=== PATIENT | male | born 1945 | race African-American/Black ===

== ENCOUNTER 2018-06-29 02:26 | Inpatient (IN) | payer MEDICARE ==
[~2018-06-29] VITALS: Ht 177.8 cm; Wt 62.7 kg
[2018-06-29 02:55] LABS: BASO # 0.1 x10^3/uL (0.0-0.2); BASO % 1 % (0-3); EOS # 0.2 x10^3/uL (0.0-0.7); EOS % 2 % (0-3); HEMATOCRIT 44.7 % (39.0-53.0); HEMOGLOBIN 15.5 g/dL (13.0-17.5); LYMPH % 30 % (24-48); MEAN CORPUSCULAR HEMOGLOBIN 30 pg (25-35); MEAN CORPUSCULAR HGB CONC 35 g/dL (31-37); MEAN CORPUSCULAR VOLUME 87 fL (79-100); MONO % 10 % (0-9); NEUT # 5.8 x10^3uL (1.8-7.7); NEUT % 57 % (31-73); PLATELET COUNT 333 x10^3/uL (140-400); RED BLOOD COUNT 5.13 x10^6/uL (4.30-5.70); RED CELL DISTRIBUTION WIDTH 15.3 % (11.5-14.5); WHITE BLOOD COUNT 10.1 x10^3/uL (4.0-11.0)
[2018-06-29 03:05] LABS: CALCIUM 9.8 mg/dL (8.5-10.1); CREATININE 1.6 mg/dL (0.7-1.3); GFR 51.4; POTASSIUM 3.7 mmol/L (3.5-5.1)
[2018-06-29 03:10] LABS: ALBUMIN 4.4 g/dL (3.4-5.0); TOTAL BILIRUBIN 1.2 mg/dL (0.2-1.0); TOTAL PROTEIN 8.9 g/dL (6.4-8.2)
[2018-06-29] MEDS ORDERED: FUROSEMIDE 20 MG/2 ML VIAL. IVP ONE (03:45)
[2018-06-29] MEDS ORDERED: risperiDONE 0.25 MG TABLET. PO ONE (03:45)
[2018-06-29 03:55] LABS: BILIRUBIN,URINE SMALL (NEG); CLARITY,URINE CLEAR; COLOR,URINE AMBER; NITRITE,URINE NEGATIVE (NEG); PH,URINE 5.5; PROTEIN,URINE 30 mg/dL (NEG-TRACE); UROBILINOGEN,URINE 0.2 mg/dL (0.2 mg/dL)
[2018-06-29 04:01] LABS: BARBITURATES NEG (NEG); BENZODIAZEPINES NEG (NEG); CANNABINOIDS NEG (NEG); COCAINE NEG (NEG); METHADONE NEG (NEG); OPIATES POS (NEG); PHENCYCLIDINE NEG (NEG)
[2018-06-29 04:03] LABS: AMPHETAMINE/METHAMPHETAMINE NEG (NEG)
[2018-06-29 04:12] LABS: BACTERIA,URINE 0 /HPF (0-FEW); HYALINE CASTS, URINE MODERATE /HPF; RBC,URINE OCC /HPF (0-2); SQUAMOUS EPITHELIAL CELL,UR FEW /LPF
--- NOTE | 2018-06-29 04:26 | RAD ---
INDICATION: ams COMPARISON: None. TECHNIQUE: Axial CT images obtained through the head without intravenous contrast. One or more of the following individualized dose reduction techniques were utilized for this examination: 1. Automated exposure control; 2. Adjustment of the mA and/or kV according to patient size; 3. Use of iterative reconstruction technique. FINDINGS: No intracranial hemorrhage. No midline shift. Basal cisterns patents. Ventricles and sulci are globally prominent. No acute osseous abnormality. Orbits and paranasal sinuses unremarkable. Scattered foci of low attenuation within the white matter. IMPRESSION: 1. No acute intracranial hemorrhage. 2. Scattered regions of low attenuation within the white matter. Non-specific in nature but frequently secondary to small vessel ischemic disease. If there is concern for acute etiology clinically MRI can better assess acuity. 3. Prominence of ventricles and sulci which is frequently secondary to age related volume loss. Electronically signed by: Manjit Trevizo MD (06/29/2018 4:24 AM) [facility]
--- NOTE | 2018-06-29 04:27 | PHYS DOC ---
Past Medical History Past Medical History: Hypertension Alcohol Use: None Drug Use: None Adult General Chief Complaint Chief Complaint: ALTERED MENTAL STATUS HPI HPI Patient is a 72 year old male brought in by ambulance from the [facility] with altered mental status. Apparently he was just admitted to 2 days ago for something very similar he's been kind of sleepy within normal no answering questions appropriately and cut off not really able to sit up on his own at times at [facility]. He did have a positive urine drug screen for opiates at on his recent admission on my review of the medical records. He did have a CT brain imaging that showed possible normal pressure hydrocephalus but no other acute trauma. His blood pressure was very elevated at they thought he might have a component of hypertensive encephalopathy. He was admitted and observed improved and then was discharged back to [facility]. Tonight again he was not really answering questions the right way and was kind of hard to arouse at times and was unable to sit up all the way on his own and so he called 911 again. Blood sugar was 105 in the field. Medics suspected drug use over they did not see any specific drug paraphernalia. Patient is not really answering questions fully he does answer some questions such as he knows the month was June but then when asked why he is here at the hospital he says "what do you mean" Review of Systems Review of Systems Unable due to patient cooperation Current Medications Current Medications Current Medications Medications (Trade) Dose Ordered Sig/Abiodun Start Time Stop Time Status Last Admin Dose Admin Furosemide (Lasix) 20 mg 1X ONCE 06/29/18 03:45 06/29/18 03:46 DC 06/29/18 03:45 20 MG Risperidone (RisperDAL) 0.25 mg 1X ONCE 06/29/18 03:45 06/29/18 03:46 DC Allergies Allergies Allergies Coded Allergies Type Severity Reaction Last Updated Verified No Known Drug Allergies 06/29/18 No Physical Exam Physical Exam Constitutional: Well developed, under nourished, no acute distress, non-toxic appearance. [] HENT: Normocephalic, atraumatic, bilateral external ears normal, oropharynx moist, no oral exudates, nose normal. [] Eyes: Pupils are very small., EOMI, conjunctiva normal, no discharge. [] Neck: Normal range of motion, no tenderness, supple, no stridor. [] Cardiovascular: There is a loud murmur at least 3-6 maybe about her systolic left upper sternal border JVD is noted Lungs & Thorax: Faint wheezing bilateral lung olvera Abdomen: Bowel sounds normal, soft, no tenderness, no masses, no pulsatile masses. [] Skin: Warm, dry, no erythema, no rash. [] Back: No tenderness, no CVA tenderness. [] Extremities: No tenderness, no cyanosis, no clubbing, ROM intact, no edema. [] Neurologic: Alert and oriented X 3, normal motor function, normal sensory function, no focal deficits noted. []Will be all extremities Jackson able to follow commands he does appear to selectively answer some questions rather others Psychologic: Appears intermittently paranoid but overall, and cooperative. Current Patient Data Vital Signs Vital Signs Date Time Temp Pulse Resp B/P (MAP) Pulse Ox O2 Delivery O2 Flow Rate FiO2 06/29/18 03:02 81 18 93 06/29/18 02:36 97.6 227/91 (136) Room Air 97.6 Lab Values Laboratory Tests Test 06/29/18 02:48 06/29/18 03:47 White Blood Count 10.1 x10^3/uL (4.0-11.0) Red Blood Count 5.13 x10^6/uL (4.30-5.70) Hemoglobin 15.5 g/dL (13.0-17.5) Hematocrit 44.7 % (39.0-53.0) Mean Corpuscular Volume 87 fL (79-100) Mean Corpuscular Hemoglobin 30 pg (25-35) Mean Corpuscular Hemoglobin Concent 35 g/dL (31-37) Red Cell Distribution Width 15.3 % (11.5-14.5) H Platelet Count 333 x10^3/uL (140-400) Neutrophils (%) (Auto) 57 % (31-73) Lymphocytes (%) (Auto) 30 % (24-48) Monocytes (%) (Auto) 10 % (0-9) H Eosinophils (%) (Auto) 2 % (0-3) Basophils (%) (Auto) 1 % (0-3) Neutrophils # (Auto) 5.8 x10^3uL (1.8-7.7) Lymphocytes # (Auto) 3.0 x10^3/uL (1.0-4.8) Monocytes # (Auto) 1.0 x10^3/uL (0.0-1.1) Eosinophils # (Auto) 0.2 x10^3/uL (0.0-0.7) Basophils # (Auto) 0.1 x10^3/uL (0.0-0.2) Sodium Level 142 mmol/L (136-145) Potassium Level 3.7 mmol/L (3.5-5.1) Chloride Level 105 mmol/L (98-107) Carbon Dioxide Level 27 mmol/L (21-32) Anion Gap 10 (6-14) Blood Urea Nitrogen 19 mg/dL (8-26) Creatinine 1.6 mg/dL (0.7-1.3) H Estimated GFR (Cockcroft-Gault) 51.4 BUN/Creatinine Ratio 12 (6-20) Glucose Level 164 mg/dL (70-99) H Calcium Level 9.8 mg/dL (8.5-10.1) Total Bilirubin 1.2 mg/dL (0.2-1.0) H Aspartate Amino Transferase (AST) 24 U/L (15-37) Alanine Aminotransferase (ALT) 19 U/L (16-63) Alkaline Phosphatase 164 U/L (46-116) H Troponin I Quantitative < 0.017 ng/mL (0.000-0.055) WH-Fgg-L-Type Natriuretic Peptide 1743 pg/mL (0-124) H Total Protein 8.9 g/dL (6.4-8.2) H Albumin 4.4 g/dL (3.4-5.0) Albumin/Globulin Ratio 1.0 (1.0-1.7) Ethyl Alcohol Level < 10 mg/dL (0-10) Urine Collection Type U cath Urine Color Senait Urine Clarity Clear Urine pH 5.5 Urine Specific [place] 1.025 Urine Protein 30 mg/dL (NEG-TRACE) Urine Glucose (UA) Negative mg/dL (NEG) Urine Ketones (Stick) Trace mg/dL (NEG) Urine Blood Negative (NEG) Urine Nitrite Negative (NEG) Urine Bilirubin Small (NEG) Urine Urobilinogen Dipstick 0.2 mg/dL (0.2 mg/dL) Urine Leukocyte Esterase Trace (NEG) Urine RBC Occ /HPF (0-2) Urine WBC 1-4 /HPF (0-4) Urine Squamous Epithelial Cells Few /LPF Urine Bacteria 0 /HPF (0-FEW) Urine Hyaline Casts Moderate /HPF Urine Mucus Marked /LPF Urine Opiates Screen Pos (NEG) Urine Methadone Screen Neg (NEG) Urine Barbiturates Neg (NEG) Urine Phencyclidine Screen Neg (NEG) Urine Amphetamine/Methamphetamine Neg (NEG) Urine Benzodiazepines Screen Neg (NEG) Urine Cocaine Screen Neg (NEG) Urine Cannabinoids Screen Neg (NEG) Urine Ethyl Alcohol Neg (NEG) Laboratory Tests 06/29/18 02:48 Laboratory Tests 06/29/18 02:48 EKG EKG [] Radiology/Procedures Radiology/Procedures [] Impressions: Chest x-ray my interpretation there is cardiomegaly as well as possible mild pulmonary vascular congestion. Course & Med Decision Making Course & Med Decision Making Pertinent Labs and Imaging studies reviewed. (See chart for details) []72-year-old male brought in by ambulance with altered mental status apparently has been kind of slow to answer questions and not really able to sit himself up all the way on his own at [facility]. Suspected drug use opiates screen is positive review of the [facility] records they are in the chart apparently he had been on methadone but they called over to doctors called over and realized that he actually is not at the methadone clinic anymore. This leads to a possibility of surreptitious opiate use given the pinpoint pupils on examination today as well this may be the reason for his altered mental status. However he does have some borderline hypoxia 90 and 91 on room air he has a loud murmur to me sounds concerning for possible aortic stenosis his BNP is elevated he does appear to be mildly dyspneic his blood pressure is quite elevated I think he warrants admission overnight for observation for some very gentle diuresis possible echo and also further consideration of the altered mental status. Considered hypoxic event at [facility] as a possible etiology as well given the borderline sats in the ER I suspect there may be a component of dementia given some of his behaviors in the emergency room. Well may have had illegal drug use as well. Dragon Disclaimer Dragon Disclaimer This electronic medical record was generated, in whole or in part, using a voice recognition dictation system. Departure Departure Impression: Primary Impression: Altered mental status Disposition: ADMITTED INPATIENT Admitting Physician: Xie. Durham Condition: STABLE Referrals: NO PCP (PCP) ILSA NORRIS MD Jun 29, 2018 04:27
[2018-06-29] MEDS ORDERED: NITROGLYCERIN OINT 1 GM PACKET. TP ONE (05:00)
[2018-06-29 05:08] LABS: PROTHROMBIN TIME PATIENT 13.4 SEC (11.7-14.0)
[2018-06-29] MEDS ORDERED: FLUT16SP NS (05:29)
[2018-06-29] MEDS ORDERED: PROAIR HFA8.5 GM INH (05:44)
[2018-06-29] MEDS ORDERED: ACET325T9 PO (05:44)
[2018-06-29] MEDS ORDERED: CHOL100013 PO (05:44)
[2018-06-29] MEDS ORDERED: CARV12.5 PO (05:44)
[2018-06-29] MEDS ORDERED: FOLI1TAB16 PO (05:44)
[2018-06-29] MEDS ORDERED: IBUP-1060 PO (05:44)
[2018-06-29] MEDS ORDERED: DICL100G18 TP (05:44)
[2018-06-29] MEDS ORDERED: CYAN10005 PO (05:44)
[2018-06-29] MEDS ORDERED: ASPI81TA50 PO (05:44)
[2018-06-29] MEDS ORDERED: LORA10TA68 PO (05:44)
[2018-06-29] MEDS ORDERED: MELA3TAB2 PO (05:44)
[2018-06-29 06:36] VITALS: BP 151/112
--- NOTE | 2018-06-29 06:56 | EKG ---
[facility] [address] [place] [address] Test Date: 2018-06-29 Test Time: 04:25:23 Pat Name: CHARLEEN ALMEIDA Department: Room: [facility] 1 Gender: M Account Resolution Specialist: : 1945 Requested By: ILSA NORRIS Order Number: [id number] [place] MD: Silvio Crews MD Measurements Intervals [place] Rate: 80 P: WA: QRS: 175 QRSD: 100 T: 7 QT: 390 QTc: 453 Interpretive Statements SR LIMB LEAD REVERSAL NON-SPECIFIC ST/T CHANGES LVH Electronically Signed On 06-29-2018 7:24:20 CDT by Silvio Crews MD
[2018-06-29 07:00] VITALS: BP 130/91
--- NOTE | 2018-06-29 07:45 | RAD ---
Portable chest, 06/29/2018: HISTORY: Chest pain The heart size is within normal limits for the portable technique. There is tortuosity and calcific plaquing of the thoracic aorta. Mild prominence of the pulmonary markings is probably due to scarring. No pulmonary consolidation is seen. There is no evidence of pleural fluid. A moderate amount of bowel gas is noted in the upper abdomen in a nonspecific pattern. Moderate multilevel degenerative changes are present in the spine. IMPRESSION: 1. Aortic atherosclerosis. 2. No acute cardiopulmonary abnormality is detected. Electronically signed by: Tavares Velasco MD (06/29/2018 7:42 AM) [facility]
--- NOTE | 2018-06-29 10:44 | PDOC1 ---
History and Physical Date of Admission Date of Admission DATE: 06/29/18 TIME: 10:44 Identification/Chief Complaint Chief Complaint CC 72 year old male brought in by ambulance from the [facility] with altered mental status. 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 He did have a positive urine drug screen for opiates at on recent admission He states he was confused yesterday, but now is ok, knows year, president on prompting, but mentation is slow Medics suspected drug use over they did not see any specific drug paraphernalia URINE DRUG SCREEN IS POS FOR OPIATES FROM ER Social History Smoke: Quit ALCOHOL: occassional Drugs: Other (UNKNOWN) Current Problem List Problem List Problems Medical Problems: (1) Altered mental status Status: Acute Current Medications Current Medications Current Medications Furosemide (Lasix) 20 mg 1X ONCE IVP Last administered on 06/29/18at 03:45; Start 06/29/18 at 03:45; Stop 06/29/18 at 03:46; Status DC Risperidone (RisperDAL) 0.25 mg 1X ONCE PO ; Start 06/29/18 at 03:45; Stop at 03:46; Status DC Nitroglycerin (Nitro-Bid Oint) 1 inch 1X ONCE TP Last administered on at 05:17; Start 06/29/18 at 05:00; Stop 06/29/18 at 05:01; Status DC Active Scripts Active Reported Melatonin 3 Mg Tablet 6 Mg PO HS Ibuprofen 800 Mg Tablet 800 Mg PO PRN Q8HRS PRN Folic Acid 1 Mg Tablet 1 Tab PO DAILY Voltaren (Diclofenac Sodium) 100 Gm Gel..gram. 1 Gm TP BID Vitamin B-12 (Cyanocobalamin (Vitamin B-12)) 1,000 Mcg Tablet 1 Tab PO DAILY Vitamin D (Cholecalciferol (Vitamin D3)) 1,000 Unit Capsule 1 Cap PO DAILY Aspir-Low (Aspirin) 81 Mg Tablet.dr 1 Tab PO DAILY Proair Hfa Inhaler (Albuterol Sulfate) 8.5 Gm Hfa.aer.ad 22 Puff INH PRN Q4HRS PRN Tylenol (Acetaminophen) 325 Mg Tablet 1 Tab PO PRN Q6HRS PRN Coreg (Carvedilol) 12.5 Mg Tablet 1 Tab PO BID Claritin (Loratadine) 10 Mg Tablet 1 Tab PO DAILY Fluticasone Propionate Nasal Maiden (Fluticasone Propionate) 16 Gm Maiden.susp 2 Maiden NS DAILY Allergies Allergies: Coded Allergies: No Known Drug Allergies (Unverified , 06/29/18) Physical Exam Physical Exam Eyes: Pupils are small., EOMI, conjunctiva normal, no discharge. [] Neck: Normal range of motion, no tenderness, supple, no stridor. [] Cardiovascular: There is a loud murmur at least 3-6 maybe about her systolic left upper sternal border JVD is noted Lungs & Thorax: Faint wheezing bilateral lung olvera Abdomen: Bowel sounds normal, soft, no tenderness, no masses, no pulsatile masses. [] Skin: Warm, dry, no erythema, no rash. [] Back: No tenderness, no CVA tenderness. [] Extremities: No tenderness, no cyanosis, no clubbing, ROM intact, no edema. [] Neurologic: Alert and oriented X 3, normal motor function, normal sensory function, no focal deficits noted. Psychologic: cooperative. General: No acute distress Breasts: Not examined Abdomen: Normal bowel sounds, No tenderness, No hepatosplenomegaly Rectal Exam: not examined PELVIC: Examination not indicated Extremities: No cyanosis Neuro: Cranial nerves 3-12 NL Vitals Vitals Vital Signs Date Time Temp Pulse Resp B/P (MAP) Pulse Ox O2 Delivery O2 Flow Rate FiO2 06/29/18 08:00 Room Air 06/29/18 07:00 97.8 67 20 130/91 (104) 95 97.8 Labs Labs Laboratory Tests Test 06/29/18 02:48 06/29/18 03:47 06/29/18 05:00 White Blood Count 10.1 x10^3/uL (4.0-11.0) Red Blood Count 5.13 x10^6/uL (4.30-5.70) Hemoglobin 15.5 g/dL (13.0-17.5) Hematocrit 44.7 % (39.0-53.0) Mean Corpuscular Volume 87 fL (79-100) Mean Corpuscular Hemoglobin 30 pg (25-35) Mean Corpuscular Hemoglobin Concent 35 g/dL (31-37) Red Cell Distribution Width 15.3 % (11.5-14.5) Platelet Count 333 x10^3/uL (140-400) Neutrophils (%) (Auto) 57 % (31-73) Lymphocytes (%) (Auto) 30 % (24-48) Monocytes (%) (Auto) 10 % (0-9) Eosinophils (%) (Auto) 2 % (0-3) Basophils (%) (Auto) 1 % (0-3) Neutrophils # (Auto) 5.8 x10^3uL (1.8-7.7) Lymphocytes # (Auto) 3.0 x10^3/uL (1.0-4.8) Monocytes # (Auto) 1.0 x10^3/uL (0.0-1.1) Eosinophils # (Auto) 0.2 x10^3/uL (0.0-0.7) Basophils # (Auto) 0.1 x10^3/uL (0.0-0.2) Sodium Level 142 mmol/L (136-145) Potassium Level 3.7 mmol/L (3.5-5.1) Chloride Level 105 mmol/L (98-107) Carbon Dioxide Level 27 mmol/L (21-32) Anion Gap 10 (6-14) Blood Urea Nitrogen 19 mg/dL (8-26) Creatinine 1.6 mg/dL (0.7-1.3) Estimated GFR (Cockcroft-Gault) 51.4 BUN/Creatinine Ratio 12 (6-20) Glucose Level 164 mg/dL (70-99) Calcium Level 9.8 mg/dL (8.5-10.1) Total Bilirubin 1.2 mg/dL (0.2-1.0) Aspartate Amino Transf (AST/SGOT) 24 U/L (15-37) Alanine Aminotransferase (ALT/SGPT) 19 U/L (16-63) Alkaline Phosphatase 164 U/L (46-116) Troponin I Quantitative < 0.017 ng/mL (0.000-0.055) CE-Ikb-I-Type Natriuretic Peptide 1743 pg/mL (0-124) Total Protein 8.9 g/dL (6.4-8.2) Albumin 4.4 g/dL (3.4-5.0) Albumin/Globulin Ratio 1.0 (1.0-1.7) Ethyl Alcohol Level < 10 mg/dL (0-10) Urine Collection Type U cath Urine Color Senait Urine Clarity Clear Urine pH 5.5 Urine Specific [place] 1.025 Urine Protein 30 mg/dL (NEG-TRACE) Urine Glucose (UA) Negative mg/dL (NEG) Urine Ketones (Stick) Trace mg/dL (NEG) Urine Blood Negative (NEG) Urine Nitrite Negative (NEG) Urine Bilirubin Small (NEG) Urine Urobilinogen Dipstick 0.2 mg/dL (0.2 mg/dL) Urine Leukocyte Esterase Trace (NEG) Urine RBC Occ /HPF (0-2) Urine WBC 1-4 /HPF (0-4) Urine Squamous Epithelial Cells Few /LPF Urine Bacteria 0 /HPF (0-FEW) Urine Hyaline Casts Moderate /HPF Urine Mucus Marked /LPF Urine Opiates Screen Pos (NEG) Urine Methadone Screen Neg (NEG) Urine Barbiturates Neg (NEG) Urine Phencyclidine Screen Neg (NEG) Urine Amphetamine/Methamphetamine Neg (NEG) Urine Benzodiazepines Screen Neg (NEG) Urine Cocaine Screen Neg (NEG) Urine Cannabinoids Screen Neg (NEG) Urine Ethyl Alcohol Neg (NEG) Prothrombin Time 13.4 SEC (11.7-14.0) Prothromb Time International Ratio 1.1 (0.8-1.1) Laboratory Tests Test 06/29/18 02:48 06/29/18 03:47 06/29/18 05:00 White Blood Count 10.1 x10^3/uL (4.0-11.0) Red Blood Count 5.13 x10^6/uL (4.30-5.70) Hemoglobin 15.5 g/dL (13.0-17.5) Hematocrit 44.7 % (39.0-53.0) Mean Corpuscular Volume 87 fL (79-100) Mean Corpuscular Hemoglobin 30 pg (25-35) Mean Corpuscular Hemoglobin Concent 35 g/dL (31-37) Red Cell Distribution Width 15.3 % (11.5-14.5) Platelet Count 333 x10^3/uL (140-400) Neutrophils (%) (Auto) 57 % (31-73) Lymphocytes (%) (Auto) 30 % (24-48) Monocytes (%) (Auto) 10 % (0-9) Eosinophils (%) (Auto) 2 % (0-3) Basophils (%) (Auto) 1 % (0-3) Neutrophils # (Auto) 5.8 x10^3uL (1.8-7.7) Lymphocytes # (Auto) 3.0 x10^3/uL (1.0-4.8) Monocytes # (Auto) 1.0 x10^3/uL (0.0-1.1) Eosinophils # (Auto) 0.2 x10^3/uL (0.0-0.7) Basophils # (Auto) 0.1 x10^3/uL (0.0-0.2) Sodium Level 142 mmol/L (136-145) Potassium Level 3.7 mmol/L (3.5-5.1) Chloride Level 105 mmol/L (98-107) Carbon Dioxide Level 27 mmol/L (21-32) Anion Gap 10 (6-14) Blood Urea Nitrogen 19 mg/dL (8-26) Creatinine 1.6 mg/dL (0.7-1.3) Estimated GFR (Cockcroft-Gault) 51.4 BUN/Creatinine Ratio 12 (6-20) Glucose Level 164 mg/dL (70-99) Calcium Level 9.8 mg/dL (8.5-10.1) Total Bilirubin 1.2 mg/dL (0.2-1.0) Aspartate Amino Transf (AST/SGOT) 24 U/L (15-37) Alanine Aminotransferase (ALT/SGPT) 19 U/L (16-63) Alkaline Phosphatase 164 U/L (46-116) Troponin I Quantitative < 0.017 ng/mL (0.000-0.055) YP-Via-Y-Type Natriuretic Peptide 1743 pg/mL (0-124) Total Protein 8.9 g/dL (6.4-8.2) Albumin 4.4 g/dL (3.4-5.0) Albumin/Globulin Ratio 1.0 (1.0-1.7) Ethyl Alcohol Level < 10 mg/dL (0-10) Urine Collection Type U cath Urine Color Senait Urine Clarity Clear Urine pH 5.5 Urine Specific [place] 1.025 Urine Protein 30 mg/dL (NEG-TRACE) Urine Glucose (UA) Negative mg/dL (NEG) Urine Ketones (Stick) Trace mg/dL (NEG) Urine Blood Negative (NEG) Urine Nitrite Negative (NEG) Urine Bilirubin Small (NEG) Urine Urobilinogen Dipstick 0.2 mg/dL (0.2 mg/dL) Urine Leukocyte Esterase Trace (NEG) Urine RBC Occ /HPF (0-2) Urine WBC 1-4 /HPF (0-4) Urine Squamous Epithelial Cells Few /LPF Urine Bacteria 0 /HPF (0-FEW) Urine Hyaline Casts Moderate /HPF Urine Mucus Marked /LPF Urine Opiates Screen Pos (NEG) Urine Methadone Screen Neg (NEG) Urine Barbiturates Neg (NEG) Urine Phencyclidine Screen Neg (NEG) Urine Amphetamine/Methamphetamine Neg (NEG) Urine Benzodiazepines Screen Neg (NEG) Urine Cocaine Screen Neg (NEG) Urine Cannabinoids Screen Neg (NEG) Urine Ethyl Alcohol Neg (NEG) Prothrombin Time 13.4 SEC (11.7-14.0) Prothromb Time International Ratio 1.1 (0.8-1.1) Images Images INDICATION: ams COMPARISON: None. TECHNIQUE: Axial CT images obtained through the head without intravenous contrast. One or more of the following individualized dose reduction techniques were utilized for this examination: 1. Automated exposure control; 2. Adjustment of the mA and/or kV according to patient size; 3. Use of iterative reconstruction technique. FINDINGS: No intracranial hemorrhage. No midline shift. Basal cisterns patents. Ventricles and sulci are globally prominent. No acute osseous abnormality. Orbits and paranasal sinuses unremarkable. Scattered foci of low attenuation within the white matter. IMPRESSION: 1. No acute intracranial hemorrhage. 2. Scattered regions of low attenuation within the white matter. Non-specific in nature but frequently secondary to small vessel ischemic disease. If there is concern for acute etiology clinically MRI can better assess acuity. 3. Prominence of ventricles and sulci which is frequently secondary to age related volume loss. Electronically signed by: Manjit Trevizo MD (06/29/2018 4:24 AM) [facility] VTE Prophylaxis Ordered VTE Prophylaxis Devices: Yes VTE Pharmacological Prophylaxi: Yes Assessment/Plan Assessment/Plan Impression: Altered mental status HX NARCOTIC ABUSE IN Past, apparently was followed in methadone vclinic at [facility] suspect aortic stenosis low attenuation within the white matter., frequently secondary to small vessel ischemic disease mild-mod dementia PLAN IV FLUID SUPPORT TELE NEUROCHECKS echo lovenox sq dvt prophylaxis neurology consult ROSY BRANDON MD Jun 29, 2018 10:44
[2018-06-29] MEDS ORDERED: ACETAMINOPHEN 325 MG TABLET. PO PRN (10:45)
[2018-06-29 10:58] VITALS: BP 138/91
[2018-06-29] MEDS ORDERED: IBUPROFEN 800 MG TABLET. PO PRN (11:00)
[2018-06-29] MEDS ORDERED: ALBUTEROL SULFATE 2.5 MG/3 ML NEBU. NEB PRN (11:00)
[2018-06-29] MEDS: FLUTICASONE 50MCG/NASAL SPRAY 16GM BOTTLE. NS SCH (11:30)
[2018-06-29] MEDS: DICLOFENAC SODIUM 1% TOPICAL GEL 100GM TUBE. TP SCH ×2 (11:30→20:48)
[2018-06-29] MEDS: CYANOCOBALAMIN (VITAMIN B-12) 1,000 MCG TABLET. PO SCH (12:09)
[2018-06-29] MEDS: CHOLECALCIFEROL (VITAMIN D3) 1,000 UNIT TABLET PO SCH (12:09)
[2018-06-29] MEDS: CARVEDILOL 12.5 MG TABLET. PO SCH ×2 (12:10→17:07)
[2018-06-29] MEDS: CETIRIZINE HCL 10 MG TABLET. PO SCH (12:10)
[2018-06-29] MEDS: FOLIC ACID 1 MG TABLET. PO SCH (12:11)
[2018-06-29] MEDS: ASPIRIN ENTERIC COATED 81 MG TABLET.DR. PO SCH (12:11)
[2018-06-29 15:07] VITALS: BP 135/66
[2018-06-29 19:00] VITALS: BP 102/49
--- NOTE | 2018-06-29 20:31 | PDOC2 ---
NEUROLOGY CONSULT Date of Admission Date of Admission DATE: 06/29/18 TIME: 20:21 Reason for Consult Reason for Consult: IMPRESSION: Hypertensive encephalopathy. Hypertensive emergency, BP 227/90 mmHg. Recurrent metabolic encephalopathy. HTN. Aortic insufficiency. Narcotic use. Smoking. Hx of illicit drug use. Dementia features. RECOMMENDATIONS/PLAN: KELLY control. Lab: see orders. EEG. Treat medical diseases. HISTORY OF THE PRESENT ILLNESS: 72-y-old AA male patent had MS changes and weakness was recently hospitalized in [facility]. He had similar symptoms again this time as MS changes, unresponsiveness , and weakness to be brought to the ER of [facility] on 06/29/18. His BP was found elevated at 227/91 mmHg. PAST MEDICAL HISTORY: Please see above. PAST SURGERY HISTORY: No major surgery recently. ALLERGY: Unknown MEDICATIONS: Refer to [facility] HISTORY: Non contributory. SOCIAL HISTORY: Denies current smoking, drinking, and illicit drug use. He smoked in past. He used Cocaine, Marijuana for > 5 years in the past. REVIEW OF SYSTEMS: Constitutional: No cachexia. Head: No traumatic brain or head injury. Skin: No edema, or rash. Ear: No infection. Eyes: No vision loss or color blindness. Nose: No bleeding or purulent discharges. Hearing: Hearing decrease. Neck: No injury. Cardiac: HTN. Pulmonary: No COPD. GI: No GI ulcer, GI bleeding. Urinary/genital: UTI. Endocrinologic: No cousin face, craniofacial dysmorphism, polydactyly. Skeletomuscular: No muscular atrophy, deformity. Neurological: see HP. Psychiatric: Opiate positive this time. Otherwise, not [id number] review of systems. PHYSICAL EXAMINATION: General appearance is in subacute distress. HEENT: Normocephalic and nontraumatic. Eyes, nose, ears, and throat are unremarkable. Neck is supple. No lymphadenopathy. No crepitus. Cardiovascular: S1, S2, regular rate and rhythm. Pulmonary: Clear to auscultation bilaterally. Abdomen: Bowel sounds are positive. Abdomen is soft, nontender, and nondistended. Extremities: No rash, lesions, or edema. No restriction of range of motion NEUROLOGICAL EXAMINATION: Awake. Oriented to time, place and person, but reactions were very slow. PERRL. EOMI. CN: no focal findings. Muscle tone: within normal. Muscle strength: 5- DTR: 2- Plantar reflex: Neutral response bilaterally Gait: not examined in bed. Sensory exam: no abnormal findings. No cerebellar signs elicited. F-T-N test fine. Current Medications Current Medications Current Medications Furosemide (Lasix) 20 mg 1X ONCE IVP Last administered on 06/29/18at 03:45; Start 06/29/18 at 03:45; Stop 06/29/18 at 03:46; Status DC Risperidone (RisperDAL) 0.25 mg 1X ONCE PO ; Start 06/29/18 at 03:45; Stop at 03:46; Status DC Nitroglycerin (Nitro-Bid Oint) 1 inch 1X ONCE TP Last administered on at 05:17; Start 06/29/18 at 05:00; Stop 06/29/18 at 05:01; Status DC Acetaminophen (Tylenol) 325 mg PRN Q6HRS PRN PO MILD PAIN; Start 06/29/18 at 10 :45 Aspirin (Ecotrin) 81 mg DAILY PO Last administered on 06/29/18at 12:11; Start at 11:30 Carvedilol (Coreg) 12.5 mg BIDWMEALS PO Last administered on 06/29/18at 17:07; Start 06/29/18 at 11:30 Cyanocobalamin (Vitamin B-12) 1,000 mcg DAILY PO Last administered on at 12:09; Start 06/29/18 at 11:30 Diclofenac Sodium (Voltaren) 1 dylan BID TP ; Start 06/29/18 at 11:30 Fluticasone Propionate (Flonase) 2 spray DAILY NS ; Start 06/29/18 at 11:30 Folic Acid (Folic Acid) 1 mg DAILY PO Last administered on 06/29/18at 12:11; Start 06/29/18 at 11:30 Albuterol Sulfate (Ventolin Neb Soln) 2.5 mg PRN Q4HRS PRN NEB SHORTNESS OF BREATH; Start 06/29/18 at 11:00 Vitamin D (Vitamin D3) 1,000 unit DAILY PO Last administered on 06/29/18at 12:09 ; Start 06/29/18 at 11:30 Ibuprofen (Motrin) 800 mg PRN Q8HRS PRN PO INFLAMMATION; Start 06/29/18 at 11: 00 Non-Formulary Medication (Melatonin ) 6 mg HS PO ; Start 06/29/18 at 21:00; Status UNV Cetirizine HCl (ZyrTEC) 10 mg DAILY PO Last administered on 06/29/18at 12:10; Start 06/29/18 at 11:30 Active Scripts Active Reported Melatonin 3 Mg Tablet 6 Mg PO HS Folic Acid 1 Mg Tablet 1 Tab PO DAILY Voltaren (Diclofenac Sodium) 100 Gm Gel..gram. 1 Gm TP BID Vitamin B-12 (Cyanocobalamin (Vitamin B-12)) 1,000 Mcg Tablet 1 Tab PO DAILY Vitamin D (Cholecalciferol (Vitamin D3)) 1,000 Unit Capsule 1 Cap PO DAILY Aspir-Low (Aspirin) 81 Mg Tablet.dr 1 Tab PO DAILY Proair Hfa Inhaler (Albuterol Sulfate) 8.5 Gm Hfa.aer.ad 22 Puff INH PRN Q4HRS PRN Tylenol (Acetaminophen) 325 Mg Tablet 1 Tab PO PRN Q6HRS PRN Coreg (Carvedilol) 12.5 Mg Tablet 1 Tab PO BID Claritin (Loratadine) 10 Mg Tablet 1 Tab PO DAILY Fluticasone Propionate Nasal [place] (Fluticasone Propionate) 16 Gm [place].susp 2 [place] NS DAILY Allergies Allergies: Allergies Coded Allergies Type Severity Reaction Last Updated Verified No Known Drug Allergies 06/29/18 No ROS Review of System The patient denies any associated fevers, chills, headache, ear pain, rhinorrhea , sore throat, stiff neck, productive cough, chest pain, shortness of breath, back or flank pain, abdominal pain, nausea, vomiting, diarrhea, constipation, dysuria, rash, numbness, weakness, tingling, incontinence, difficulty ambulating, or diaphoresis. Physical Exam Physical Exam General: Well developed, well nourished, no acute distress, well appearing HEENT: Pupils equally round and reactive to light, EOMI, no discharge, normal conjunctiva Neck: Supple, no nuchal rigidity, no JVD, trachea midline, no tenderness Cardiac: RRR, no murmurs, no gallops, no rubs Chest/Lungs: CTAB, no wheeze, no rhonchi, no crackles Abdomen: soft, non-distended, no guarding, no peritoneal signs, non-tender Back: No tenderness Extremities: no edema, pulses intact, non-tender,capillary refill <3 sec bilateral upper and lower extremities, Neuro: Alert and oriented x 4, no focal deficits, normal speech Vitals Vitals: Vital Signs Date Time Temp Pulse Resp B/P (MAP) Pulse Ox O2 Delivery O2 Flow Rate FiO2 06/29/18 17:07 64 135/66 06/29/18 15:07 98.0 20 100 Room Air 98.0 Labs Labs Laboratory Tests Test 06/29/18 02:48 06/29/18 03:47 06/29/18 05:00 White Blood Count 10.1 x10^3/uL (4.0-11.0) Red Blood Count 5.13 x10^6/uL (4.30-5.70) Hemoglobin 15.5 g/dL (13.0-17.5) Hematocrit 44.7 % (39.0-53.0) Mean Corpuscular Volume 87 fL (79-100) Mean Corpuscular Hemoglobin 30 pg (25-35) Mean Corpuscular Hemoglobin Concent 35 g/dL (31-37) Red Cell Distribution Width 15.3 % (11.5-14.5) Platelet Count 333 x10^3/uL (140-400) Neutrophils (%) (Auto) 57 % (31-73) Lymphocytes (%) (Auto) 30 % (24-48) Monocytes (%) (Auto) 10 % (0-9) Eosinophils (%) (Auto) 2 % (0-3) Basophils (%) (Auto) 1 % (0-3) Neutrophils # (Auto) 5.8 x10^3uL (1.8-7.7) Lymphocytes # (Auto) 3.0 x10^3/uL (1.0-4.8) Monocytes # (Auto) 1.0 x10^3/uL (0.0-1.1) Eosinophils # (Auto) 0.2 x10^3/uL (0.0-0.7) Basophils # (Auto) 0.1 x10^3/uL (0.0-0.2) Sodium Level 142 mmol/L (136-145) Potassium Level 3.7 mmol/L (3.5-5.1) Chloride Level 105 mmol/L (98-107) Carbon Dioxide Level 27 mmol/L (21-32) Anion Gap 10 (6-14) Blood Urea Nitrogen 19 mg/dL (8-26) Creatinine 1.6 mg/dL (0.7-1.3) Estimated GFR (Cockcroft-Gault) 51.4 BUN/Creatinine Ratio 12 (6-20) Glucose Level 164 mg/dL (70-99) Calcium Level 9.8 mg/dL (8.5-10.1) Total Bilirubin 1.2 mg/dL (0.2-1.0) Aspartate Amino Transf (AST/SGOT) 24 U/L (15-37) Alanine Aminotransferase (ALT/SGPT) 19 U/L (16-63) Alkaline Phosphatase 164 U/L (46-116) Troponin I Quantitative < 0.017 ng/mL (0.000-0.055) TT-Inz-O-Type Natriuretic Peptide 1743 pg/mL (0-124) Total Protein 8.9 g/dL (6.4-8.2) Albumin 4.4 g/dL (3.4-5.0) Albumin/Globulin Ratio 1.0 (1.0-1.7) Ethyl Alcohol Level < 10 mg/dL (0-10) Urine Collection Type U cath Urine Color Senait Urine Clarity Clear Urine pH 5.5 Urine Specific [place] 1.025 Urine Protein 30 mg/dL (NEG-TRACE) Urine Glucose (UA) Negative mg/dL (NEG) Urine Ketones (Stick) Trace mg/dL (NEG) Urine Blood Negative (NEG) Urine Nitrite Negative (NEG) Urine Bilirubin Small (NEG) Urine Urobilinogen Dipstick 0.2 mg/dL (0.2 mg/dL) Urine Leukocyte Esterase Trace (NEG) Urine RBC Occ /HPF (0-2) Urine WBC 1-4 /HPF (0-4) Urine Squamous Epithelial Cells Few /LPF Urine Bacteria 0 /HPF (0-FEW) Urine Hyaline Casts Moderate /HPF Urine Mucus Marked /LPF Urine Opiates Screen Pos (NEG) Urine Methadone Screen Neg (NEG) Urine Barbiturates Neg (NEG) Urine Phencyclidine Screen Neg (NEG) Urine Amphetamine/Methamphetamine Neg (NEG) Urine Benzodiazepines Screen Neg (NEG) Urine Cocaine Screen Neg (NEG) Urine Cannabinoids Screen Neg (NEG) Urine Ethyl Alcohol Neg (NEG) Prothrombin Time 13.4 SEC (11.7-14.0) Prothromb Time International Ratio 1.1 (0.8-1.1) Laboratory Tests Test 06/29/18 02:48 06/29/18 03:47 06/29/18 05:00 White Blood Count 10.1 x10^3/uL (4.0-11.0) Red Blood Count 5.13 x10^6/uL (4.30-5.70) Hemoglobin 15.5 g/dL (13.0-17.5) Hematocrit 44.7 % (39.0-53.0) Mean Corpuscular Volume 87 fL (79-100) Mean Corpuscular Hemoglobin 30 pg (25-35) Mean Corpuscular Hemoglobin Concent 35 g/dL (31-37) Red Cell Distribution Width 15.3 % (11.5-14.5) Platelet Count 333 x10^3/uL (140-400) Neutrophils (%) (Auto) 57 % (31-73) Lymphocytes (%) (Auto) 30 % (24-48) Monocytes (%) (Auto) 10 % (0-9) Eosinophils (%) (Auto) 2 % (0-3) Basophils (%) (Auto) 1 % (0-3) Neutrophils # (Auto) 5.8 x10^3uL (1.8-7.7) Lymphocytes # (Auto) 3.0 x10^3/uL (1.0-4.8) Monocytes # (Auto) 1.0 x10^3/uL (0.0-1.1) Eosinophils # (Auto) 0.2 x10^3/uL (0.0-0.7) Basophils # (Auto) 0.1 x10^3/uL (0.0-0.2) Sodium Level 142 mmol/L (136-145) Potassium Level 3.7 mmol/L (3.5-5.1) Chloride Level 105 mmol/L (98-107) Carbon Dioxide Level 27 mmol/L (21-32) Anion Gap 10 (6-14) Blood Urea Nitrogen 19 mg/dL (8-26) Creatinine 1.6 mg/dL (0.7-1.3) Estimated GFR (Cockcroft-Gault) 51.4 BUN/Creatinine Ratio 12 (6-20) Glucose Level 164 mg/dL (70-99) Calcium Level 9.8 mg/dL (8.5-10.1) Total Bilirubin 1.2 mg/dL (0.2-1.0) Aspartate Amino Transf (AST/SGOT) 24 U/L (15-37) Alanine Aminotransferase (ALT/SGPT) 19 U/L (16-63) Alkaline Phosphatase 164 U/L (46-116) Troponin I Quantitative < 0.017 ng/mL (0.000-0.055) KK-Lbh-S-Type Natriuretic Peptide 1743 pg/mL (0-124) Total Protein 8.9 g/dL (6.4-8.2) Albumin 4.4 g/dL (3.4-5.0) Albumin/Globulin Ratio 1.0 (1.0-1.7) Ethyl Alcohol Level < 10 mg/dL (0-10) Urine Collection Type U cath Urine Color Senait Urine Clarity Clear Urine pH 5.5 Urine Specific [place] 1.025 Urine Protein 30 mg/dL (NEG-TRACE) Urine Glucose (UA) Negative mg/dL (NEG) Urine Ketones (Stick) Trace mg/dL (NEG) Urine Blood Negative (NEG) Urine Nitrite Negative (NEG) Urine Bilirubin Small (NEG) Urine Urobilinogen Dipstick 0.2 mg/dL (0.2 mg/dL) Urine Leukocyte Esterase Trace (NEG) Urine RBC Occ /HPF (0-2) Urine WBC 1-4 /HPF (0-4) Urine Squamous Epithelial Cells Few /LPF Urine Bacteria 0 /HPF (0-FEW) Urine Hyaline Casts Moderate /HPF Urine Mucus Marked /LPF Urine Opiates Screen Pos (NEG) Urine Methadone Screen Neg (NEG) Urine Barbiturates Neg (NEG) Urine Phencyclidine Screen Neg (NEG) Urine Amphetamine/Methamphetamine Neg (NEG) Urine Benzodiazepines Screen Neg (NEG) Urine Cocaine Screen Neg (NEG) Urine Cannabinoids Screen Neg (NEG) Urine Ethyl Alcohol Neg (NEG) Prothrombin Time 13.4 SEC (11.7-14.0) Prothromb Time International Ratio 1.1 (0.8-1.1) SANDEEP LENZ MD Jun 29, 2018 20:31
[2018-06-29] MEDS ORDERED: NON FORMULARY ITEM (Melatonin 6 MG) PO SCH (21:00)
[2018-06-29 23:00] VITALS: BP 128/82
[2018-06-30 03:00] VITALS: BP 168/89
[2018-06-30 07:00] VITALS: BP 143/76
[2018-06-30] MEDS: CARVEDILOL 12.5 MG TABLET. PO SCH ×2 (08:15→17:17)
[2018-06-30] MEDS: CETIRIZINE HCL 10 MG TABLET. PO SCH (08:15)
[2018-06-30] MEDS: CHOLECALCIFEROL (VITAMIN D3) 1,000 UNIT TABLET PO SCH (08:15)
[2018-06-30] MEDS: CYANOCOBALAMIN (VITAMIN B-12) 1,000 MCG TABLET. PO SCH (08:15)
[2018-06-30] MEDS: FOLIC ACID 1 MG TABLET. PO SCH (08:15)
[2018-06-30] MEDS: ASPIRIN ENTERIC COATED 81 MG TABLET.DR. PO SCH (08:15)
[2018-06-30] MEDS: FLUTICASONE 50MCG/NASAL SPRAY 16GM BOTTLE. NS SCH (08:16)
[2018-06-30] MEDS: DICLOFENAC SODIUM 1% TOPICAL GEL 100GM TUBE. TP SCH ×2 (08:16→20:46)
[2018-06-30 09:45] LABS: CALCIUM 8.8 mg/dL (8.5-10.1); CREATININE 1.1 mg/dL (0.7-1.3); GFR 79.2; POTASSIUM 3.4 mmol/L (3.5-5.1)
[2018-06-30 09:53] LABS: CHOLESTEROL/HDL RATIO 4.1
[2018-06-30 10:05] LABS: FREE T4 1.16 ng/dL (0.76-1.46)
--- NOTE | 2018-06-30 10:34 | PDOC2 ---
KRYSTAL CHEN FRAUD ANALYST 06/30/18 1033: CARDIAC CONSULT DATE OF CONSULT Date of Consult DATE: 06/30/18 TIME: 10:24 REASON FOR CONSULT Reason for Consult: CHF REFERRING PHYSICIAN Referring Physician: Nando SOURCE Source: Chart review HISTORY OF PRESENT ILLNESS HISTORY OF PRESENT ILLNESS 72 year old male who was not arouseable @ the [facility] and EMS was contacted and he was transported to the ER. Hypertensive urgency on presentation with BP of 227/91. NT-proBNP of 1743. CXR without evidence of CHF. EKG without acute changes. Patient presented to on 2017 via EMS with same symptoms and was discharged on 06/28/2018 back to the [facility] with diagnosis of hypertensive encephalopathy. UDS @ was positive for opiates as it was here. Patient without recall of admission/ discharge and no recall of his presentation here. PAST MEDICAL HISTORY Cardiovascular: HTN Pulmonary: Other (empyema, bronchopleural fistula) CENTRAL NERVOUS SYSTEM: Other (none) GI: No pertinent hx Heme/Onc: No pertinent hx Hepatobiliary: No pertinent hx Psych: Addictions (opiods with previous cocaine/methadone use) Musculoskeletal: No pain Rheumatologic: No pertinent hx Infectious disease: No pertinent hx Renal/: No pertinent hx Endocrine: No pertinent hx Dermatology: No pertinent hx PAST SURGICAL HISTORY Past Surgical History: No pertinent history FAMILY HISTORY Family History: Family History Unknown SOCIAL HISTORY Social History from [facility] Smoke: 1 pack per day CURRENT MEDICATIONS CURRENT MEDICATIONS Current Medications Medications (Trade) Dose Ordered Sig/Abiodun Route PRN Reason Start Time Stop Time Status Last Admin Dose Admin Aspirin (Ecotrin) 81 mg DAILY PO 06/29/18 11:30 06/30/18 08:15 Carvedilol (Coreg) 12.5 mg BIDWMEALS PO 06/29/18 11:30 06/30/18 08:15 Cyanocobalamin (Vitamin B-12) 1,000 mcg DAILY PO 06/29/18 11:30 06/30/18 08:15 Diclofenac Sodium (Voltaren) 1 dylan BID TP 06/29/18 11:30 06/30/18 08:16 Fluticasone Propionate (Flonase) 2 spray DAILY NS 06/29/18 11:30 06/30/18 08:16 Folic Acid (Folic Acid) 1 mg DAILY PO 06/29/18 11:30 06/30/18 08:15 Vitamin D (Vitamin D3) 1,000 unit DAILY PO 06/29/18 11:30 06/30/18 08:15 Cetirizine HCl (ZyrTEC) 10 mg DAILY PO 06/29/18 11:30 06/30/18 08:15 ALLERGIES ALLERGIES: Coded Allergies: No Known Drug Allergies (Unverified , 06/29/18) ROS Review of System patient without recall of events; denies CP, palps, dyspnea, edema PHYSICAL EXAM General: Alert, Oriented X3, Cooperative, No acute distress HEENT: Atraumatic Lungs: Normal air movement, Other (scattered basilar crackles) Heart: Normal S1, Normal S2, No murmurs Abdomen: Soft Extremities: No edema, Normal pulses Skin: No rashes Neuro: Normal speech Psych/Mental Status: Mental status NL, Mood NL MUSCULOSKELETAL: No deformity VITALS VITALS Vital Signs Date Time Temp Pulse Resp B/P (MAP) Pulse Ox O2 Delivery O2 Flow Rate FiO2 06/30/18 08:15 73 143/76 06/30/18 08:00 Room Air 06/30/18 07:00 97.8 20 95 97.8 LABS Lab: Laboratory Tests Test 06/30/18 08:58 Sodium Level 144 mmol/L (136-145) Potassium Level 3.4 mmol/L (3.5-5.1) Chloride Level 108 mmol/L (98-107) Carbon Dioxide Level 26 mmol/L (21-32) Anion Gap 10 (6-14) Blood Urea Nitrogen 22 mg/dL (8-26) Creatinine 1.1 mg/dL (0.7-1.3) Estimated GFR (Cockcroft-Gault) 79.2 Glucose Level 114 mg/dL (70-99) Calcium Level 8.8 mg/dL (8.5-10.1) Magnesium Level 2.0 mg/dL (1.8-2.4) Triglycerides Level 72 mg/dL (0-150) Cholesterol Level 183 mg/dL (0-200) LDL Cholesterol, Calculated 124 mg/dL (0-100) VLDL Cholesterol, Calculated 14 mg/dL (0-40) Non-HDL Cholesterol Calculated 138 mg/dL (0-129) HDL Cholesterol 45 mg/dL (40-60) Cholesterol/HDL Ratio 4.1 Free Thyroxine 1.16 ng/dL (0.76-1.46) Free Triiodothyronine (T3) pg/mL 2.10 pg/mL (2.18-3.98) IMAGES IMAGES CXR: The heart size is within normal limits for the portable technique. There is tortuosity and calcific plaquing of the thoracic aorta. Mild prominence of the pulmonary markings is probably due to scarring. No pulmonary consolidation is seen. There is no evidence of pleural fluid. A moderate amount of bowel gas is noted in the upper abdomen in a nonspecific pattern. Moderate multilevel degenerative changes are present in the spine. IMPRESSION: 1. Aortic atherosclerosis. 2. No acute cardiopulmonary abnormality is detected. EKG EKG SR LIMB LEAD REVERSAL NON-SPECIFIC ST/T CHANGES LVH ASSESSMENT/PLAN ASSESSMENT/PLAN 1. hypertensive urgency/encephalopathy --recurrent; ? underlying dementia --? taking meds in the residential; BP improving here --TTE to evaluate LVEF; ? of murmur in ER but not auscultated today 2. CHF --BNP likely elevated in the setting of hypertensive urgency --CXR without CHF --clinical findings not supporting diagnosis 3. ? substance abuse --defer to primary service JENNI FONTAINE MD 06/30/18 1424: CARDIAC CONSULT ASSESSMENT/PLAN ASSESSMENT/PLAN Patient seen and examined. Agree with FINANCE ADVISOR's assessment and plan. Hypertensive emergency probably secondary to noncompliance with medications Elevated BNP most to be secondary to uncontrolled hypertension Titrate oral ant hypertensives for better blood pressure control No clinical evidence for congestive heart failure 2-D echo showed normal LV systolic function with moderate mitral regurgitation Thank you for your consultation KRYSTAL CHEN APRN Jun 30, 2018 10:33 JENNI FONTAINE MD Jun 30, 2018 14:24
[2018-06-30 11:00] VITALS: BP 113/69
--- NOTE | 2018-06-30 12:29 | CARD ---
MR#: [id number] Date of Study: 06/30/2018 Ordering Physician: KRYSTAL CHEN, Referring Physician: GRAYSON ESTRADA Tech: Diana Grissom RDCS APPROVED REPORT EXAM: Two-dimensional and M-mode echocardiogram with Doppler and color Doppler. Other Information Quality : Good INDICATION Hypertension/HCVD Murmur Congestive Heart Failure 2D DIMENSIONS RVDd2.3 (2.9-3.5cm)Left Atrium(2D)4.1 (1.6-4.0cm) IVSd1.0 (0.7-1.1cm)Aortic Root(2D)2.8 (2.0-3.7cm) LVDd4.6 (3.9-5.9cm)LVOT Diameter2.0 (1.8-2.4cm) PWd1.1 (0.7-1.1cm)LVDs2.7 (2.5-4.0cm) FS (%) 30.0 %SV71.2 ml LVEF(%)60.0 (>50%) Aortic Valve AoV Peak José Miguel.107.5cm/sAoV VTI18.0cm AO Peak GR.4.6mmHgLVOT Peak José Miguel.97.7cm/s AO Mean GR.2mmHgAVA (VMAX)2.79cm2 TEMO (VTI)3.40cm2 Mitral Valve MV E Yvcbyhzl69.3cm/sMV DECEL [id number] MV A Cterenlu52.3cm/sE/A Ratio0.7 Tricuspid Valve TR P. Jyiyhmga338cd/sRAP [id number] TR Peak Gr.[id number] Pulmonary Vein S1 Sozrnbdh98.5cm/sD2 Trksxmsz90.0cm/s LEFT VENTRICLE The left ventricle is normal size. There is normal left ventricular wall thickness. The left ventricu lar systolic function is normal. The Ejection Fraction is 55-60%. There is normal LV segmental wall m otion. Transmitral Doppler flow pattern is Grade I-abnormal relaxation pattern. RIGHT VENTRICLE The right ventricle is normal size. The right ventricular systolic function is normal. ATRIA The left atrium is mildly dilated. The right atrium size is normal. The interatrial septum is intact with no evidence for an atrial septal defect or patent foramen ovale as noted on 2-D or Doppler imagi ng. AORTIC VALVE The aortic valve is calcified but opens well. Doppler and Color Flow revealed no significant aortic r egurgitation. There is no significant aortic valvular stenosis. MITRAL VALVE The mitral valve is normal in structure and function. There is no evidence of mitral valve prolapse. There is no mitral valve stenosis. Doppler and Color-flow revealed moderate mitral regurgitation with eccentric posteriorily directed jet. TRICUSPID VALVE The tricuspid valve is normal in structure and function. Doppler and Color Flow revealed mild to mode rate tricuspid regurgitation. There is mild to moderate pulmonary hypertension. The PA pressure was e stimated at 40 mmHg. There is no tricuspid valve stenosis. PULMONIC VALVE The pulmonic valve is not well visualized. Doppler and Color Flow revealed mild pulmonic valvular reg urgitation. There is no pulmonic valvular stenosis. GREAT VESSELS The aortic root is normal in size. The ascending aorta is normal in size. The IVC is normal in size a nd collapses >50% with inspiration. PERICARDIAL EFFUSION There is no evidence of significant pericardial effusion. Critical Notification Critical Value: No <Conclusion> The left ventricular systolic function is normal. The Ejection Fraction is 55-60%. There is normal LV segmental wall motion. Transmitral Doppler flow pattern is Grade I-abnormal relaxation pattern. Moderate mitral regurgitation with eccentric posteriorily directed jet. Mild to moderate tricuspid regurgitation. The PA pressure was estimated at 40 mmHg. There is no evidence of significant pericardial effusion. Signed by : Cristian Pulliam, Electronically Approved : 06/30/2018 12:28:55
--- NOTE | 2018-06-30 12:52 | PDOC ---
PROGRESS NOTES Chief Complaint Chief Complaint alert conversational, no pain issues Vitals Vitals Vital Signs Date Time Temp Pulse Resp B/P (MAP) Pulse Ox O2 Delivery O2 Flow Rate FiO2 06/30/18 11:00 97.7 63 20 113/69 (84) 96 Room Air 97.7 Physical Exam Physical Exam seen examined bedside lungs: clear cvs:s1s2 regular abd: soft, bs active ext: no edema neuro: alert and conversational neck supple, oriented to self , knows he is in hospital, Labs LABS Laboratory Tests Test 06/30/18 08:58 Sodium Level 144 mmol/L (136-145) Potassium Level 3.4 mmol/L (3.5-5.1) Chloride Level 108 mmol/L (98-107) Carbon Dioxide Level 26 mmol/L (21-32) Anion Gap 10 (6-14) Blood Urea Nitrogen 22 mg/dL (8-26) Creatinine 1.1 mg/dL (0.7-1.3) Estimated GFR (Cockcroft-Gault) 79.2 Glucose Level 114 mg/dL (70-99) Calcium Level 8.8 mg/dL (8.5-10.1) Magnesium Level 2.0 mg/dL (1.8-2.4) Triglycerides Level 72 mg/dL (0-150) Cholesterol Level 183 mg/dL (0-200) LDL Cholesterol, Calculated 124 mg/dL (0-100) VLDL Cholesterol, Calculated 14 mg/dL (0-40) Non-HDL Cholesterol Calculated 138 mg/dL (0-129) HDL Cholesterol 45 mg/dL (40-60) Cholesterol/HDL Ratio 4.1 Free Thyroxine 1.16 ng/dL (0.76-1.46) Free Triiodothyronine (T3) pg/mL 2.10 pg/mL (2.18-3.98) Assessment and Plan Assessmemt and Plan Problems Medical Problems: (1) Altered mental status 2. hypertensive encephalopathy 3. possible dementia 4. h/o substance use plan neuro work up control bp see orders pt educated, guarded prognosis ' Comment Review of Relevant I have reviewed the following items abimael (where applicable) has been applied. Labs Laboratory Tests Test 06/29/18 02:32 06/29/18 02:48 06/29/18 03:47 06/29/18 05:00 Vitamin B12 Level 651 pg/mL (247-911) Thyroid Stimulating Hormone (TSH) 6.930 uIU/mL (0.358-3.74) White Blood Count 10.1 x10^3/uL (4.0-11.0) Red Blood Count 5.13 x10^6/uL (4.30-5.70) Hemoglobin 15.5 g/dL (13.0-17.5) Hematocrit 44.7 % (39.0-53.0) Mean Corpuscular Volume 87 fL (79-100) Mean Corpuscular Hemoglobin 30 pg (25-35) Mean Corpuscular Hemoglobin Concent 35 g/dL (31-37) Red Cell Distribution Width 15.3 % (11.5-14.5) Platelet Count 333 x10^3/uL (140-400) Neutrophils (%) (Auto) 57 % (31-73) Lymphocytes (%) (Auto) 30 % (24-48) Monocytes (%) (Auto) 10 % (0-9) Eosinophils (%) (Auto) 2 % (0-3) Basophils (%) (Auto) 1 % (0-3) Neutrophils # (Auto) 5.8 x10^3uL (1.8-7.7) Lymphocytes # (Auto) 3.0 x10^3/uL (1.0-4.8) Monocytes # (Auto) 1.0 x10^3/uL (0.0-1.1) Eosinophils # (Auto) 0.2 x10^3/uL (0.0-0.7) Basophils # (Auto) 0.1 x10^3/uL (0.0-0.2) Sodium Level 142 mmol/L (136-145) Potassium Level 3.7 mmol/L (3.5-5.1) Chloride Level 105 mmol/L (98-107) Carbon Dioxide Level 27 mmol/L (21-32) Anion Gap 10 (6-14) Blood Urea Nitrogen 19 mg/dL (8-26) Creatinine 1.6 mg/dL (0.7-1.3) Estimated GFR (Cockcroft-Gault) 51.4 BUN/Creatinine Ratio 12 (6-20) Glucose Level 164 mg/dL (70-99) Calcium Level 9.8 mg/dL (8.5-10.1) Total Bilirubin 1.2 mg/dL (0.2-1.0) Aspartate Amino Transf (AST/SGOT) 24 U/L (15-37) Alanine Aminotransferase (ALT/SGPT) 19 U/L (16-63) Alkaline Phosphatase 164 U/L (46-116) Troponin I Quantitative < 0.017 ng/mL (0.000-0.055) YQ-Ogs-Q-Type Natriuretic Peptide 1743 pg/mL (0-124) Total Protein 8.9 g/dL (6.4-8.2) Albumin 4.4 g/dL (3.4-5.0) Albumin/Globulin Ratio 1.0 (1.0-1.7) Ethyl Alcohol Level < 10 mg/dL (0-10) Urine Collection Type U cath Urine Color Senait Urine Clarity Clear Urine pH 5.5 Urine Specific Jarrell 1.025 Urine Protein 30 mg/dL (NEG-TRACE) Urine Glucose (UA) Negative mg/dL (NEG) Urine Ketones (Stick) Trace mg/dL (NEG) Urine Blood Negative (NEG) Urine Nitrite Negative (NEG) Urine Bilirubin Small (NEG) Urine Urobilinogen Dipstick 0.2 mg/dL (0.2 mg/dL) Urine Leukocyte Esterase Trace (NEG) Urine RBC Occ /HPF (0-2) Urine WBC 1-4 /HPF (0-4) Urine Squamous Epithelial Cells Few /LPF Urine Bacteria 0 /HPF (0-FEW) Urine Hyaline Casts Moderate /HPF Urine Mucus Marked /LPF Urine Opiates Screen Pos (NEG) Urine Methadone Screen Neg (NEG) Urine Barbiturates Neg (NEG) Urine Phencyclidine Screen Neg (NEG) Urine Amphetamine/Methamphetamine Neg (NEG) Urine Benzodiazepines Screen Neg (NEG) Urine Cocaine Screen Neg (NEG) Urine Cannabinoids Screen Neg (NEG) Urine Ethyl Alcohol Neg (NEG) Prothrombin Time 13.4 SEC (11.7-14.0) Prothromb Time International Ratio 1.1 (0.8-1.1) Test 06/30/18 08:58 Sodium Level 144 mmol/L (136-145) Potassium Level 3.4 mmol/L (3.5-5.1) Chloride Level 108 mmol/L (98-107) Carbon Dioxide Level 26 mmol/L (21-32) Anion Gap 10 (6-14) Blood Urea Nitrogen 22 mg/dL (8-26) Creatinine 1.1 mg/dL (0.7-1.3) Estimated GFR (Cockcroft-Gault) 79.2 Glucose Level 114 mg/dL (70-99) Calcium Level 8.8 mg/dL (8.5-10.1) Magnesium Level 2.0 mg/dL (1.8-2.4) Triglycerides Level 72 mg/dL (0-150) Cholesterol Level 183 mg/dL (0-200) LDL Cholesterol, Calculated 124 mg/dL (0-100) VLDL Cholesterol, Calculated 14 mg/dL (0-40) Non-HDL Cholesterol Calculated 138 mg/dL (0-129) HDL Cholesterol 45 mg/dL (40-60) Cholesterol/HDL Ratio 4.1 Free Thyroxine 1.16 ng/dL (0.76-1.46) Free Triiodothyronine (T3) pg/mL 2.10 pg/mL (2.18-3.98) Laboratory Tests Test 06/30/18 08:58 Sodium Level 144 mmol/L (136-145) Potassium Level 3.4 mmol/L (3.5-5.1) Chloride Level 108 mmol/L (98-107) Carbon Dioxide Level 26 mmol/L (21-32) Anion Gap 10 (6-14) Blood Urea Nitrogen 22 mg/dL (8-26) Creatinine 1.1 mg/dL (0.7-1.3) Estimated GFR (Cockcroft-Gault) 79.2 Glucose Level 114 mg/dL (70-99) Calcium Level 8.8 mg/dL (8.5-10.1) Magnesium Level 2.0 mg/dL (1.8-2.4) Triglycerides Level 72 mg/dL (0-150) Cholesterol Level 183 mg/dL (0-200) LDL Cholesterol, Calculated 124 mg/dL (0-100) VLDL Cholesterol, Calculated 14 mg/dL (0-40) Non-HDL Cholesterol Calculated 138 mg/dL (0-129) HDL Cholesterol 45 mg/dL (40-60) Cholesterol/HDL Ratio 4.1 Free Thyroxine 1.16 ng/dL (0.76-1.46) Free Triiodothyronine (T3) pg/mL 2.10 pg/mL (2.18-3.98) Microbiology 06/29/18 Urine Culture - Final, Complete 06/29/18 Urine Culture Result 1 (MELITA) - Final, Complete Medications Current Medications Furosemide (Lasix) 20 mg 1X ONCE IVP Last administered on 06/29/18at 03:45; Start 06/29/18 at 03:45; Stop 06/29/18 at 03:46; Status DC Risperidone (RisperDAL) 0.25 mg 1X ONCE PO ; Start 06/29/18 at 03:45; Stop at 03:46; Status DC Nitroglycerin (Nitro-Bid Oint) 1 inch 1X ONCE TP Last administered on at 05:17; Start 06/29/18 at 05:00; Stop 06/29/18 at 05:01; Status DC Acetaminophen (Tylenol) 325 mg PRN Q6HRS PRN PO MILD PAIN; Start 06/29/18 at 10 :45 Aspirin (Ecotrin) 81 mg DAILY PO Last administered on 06/30/18 08:15; Start at 11:30 Carvedilol (Coreg) 12.5 mg BIDWMEALS PO Last administered on 06/30/18 08:15; Start 06/29/18 at 11:30 Cyanocobalamin (Vitamin B-12) 1,000 mcg DAILY PO Last administered on 08:15; Start 06/29/18 at 11:30 Diclofenac Sodium (Voltaren) 1 dylan BID TP Last administered on 06/30/18 08:16 ; Start 06/29/18 at 11:30 Fluticasone Propionate (Flonase) 2 spray DAILY NS Last administered on 08:16; Start 06/29/18 at 11:30 Folic Acid (Folic Acid) 1 mg DAILY PO Last administered on 06/30/18 08:15; Start 06/29/18 at 11:30 Albuterol Sulfate (Ventolin Neb Soln) 2.5 mg PRN Q4HRS PRN NEB SHORTNESS OF BREATH; Start 06/29/18 at 11:00 Vitamin D (Vitamin D3) 1,000 unit DAILY PO Last administered on 06/30/18at 08:15 ; Start 06/29/18 at 11:30 Ibuprofen (Motrin) 800 mg PRN Q8HRS PRN PO INFLAMMATION; Start 06/29/18 at 11: 00 Non-Formulary Medication (Melatonin ) 6 mg HS PO ; Start 06/29/18 at 21:00; Status UNV Cetirizine HCl (ZyrTEC) 10 mg DAILY PO Last administered on 06/30/18at 08:15; Start 06/29/18 at 11:30 Atorvastatin Calcium (Lipitor) 10 mg QHS PO ; Start 06/30/18 at 21:00 Active Scripts Active Reported Melatonin 3 Mg Tablet 6 Mg PO HS Folic Acid 1 Mg Tablet 1 Tab PO DAILY Voltaren (Diclofenac Sodium) 100 Gm Gel..gram. 1 Gm TP BID Vitamin B-12 (Cyanocobalamin (Vitamin B-12)) 1,000 Mcg Tablet 1 Tab PO DAILY Vitamin D (Cholecalciferol (Vitamin D3)) 1,000 Unit Capsule 1 Cap PO DAILY Aspir-Low (Aspirin) 81 Mg Tablet.dr 1 Tab PO DAILY Proair Hfa Inhaler (Albuterol Sulfate) 8.5 Gm Hfa.aer.ad 22 Puff INH PRN Q4HRS PRN Tylenol (Acetaminophen) 325 Mg Tablet 1 Tab PO PRN Q6HRS PRN Coreg (Carvedilol) 12.5 Mg Tablet 1 Tab PO BID Claritin (Loratadine) 10 Mg Tablet 1 Tab PO DAILY Fluticasone Propionate Nasal [place] (Fluticasone Propionate) 16 Gm [place].susp 2 [place] NS DAILY Vitals/I & O Vital Sign - Last 24 Hours 06/29/18 06/29/18 06/29/18 06/29/18 15:07 17:07 19:00 20:00 Temp 98.0 97.7 98.0 97.7 Pulse 64 64 106 Resp 20 18 B/P (MAP) 135/66 (89) 135/66 102/49 (66) Pulse Ox 100 95 O2 Delivery Room Air Room Air Room Air 06/29/18 06/30/18 06/30/18 06/30/18 23:00 03:00 07:00 08:00 Temp 97.7 98.0 97.8 97.7 98.0 97.8 Pulse 58 73 73 Resp 18 18 20 B/P (MAP) 128/82 (97) 168/89 (115) 143/76 (98) Pulse Ox 97 96 95 O2 Delivery Room Air Room Air Room Air Room Air 8/24/18 8/24/18 08:15 11:00 Temp 97.7 97.7 Pulse 73 63 Resp 20 B/P (MAP) 143/76 113/69 (84) Pulse Ox 96 O2 Delivery Room Air Intake and Output 06/29/18 06/29/18 06/30/18 15:00 23:00 07:00 Intake Total 240 ml 500 ml 500 ml Output Total 550 ml 200 ml Balance 240 ml -50 ml 300 ml ARIELA HUBBARD MD Jun 30, 2018 12:52
--- NOTE | 2018-06-30 14:13 | PDOC ---
PROGRESS NOTES Assessment Assessment Hypertensive encephalopathy. Hypertensive emergency, BP 227/90 mmHg. Recurrent metabolic encephalopathy. HTN. Aortic insufficiency. Narcotic use. Smoking. Hx of illicit drug use. Dementia features. RECOMMENDATIONS/PLAN: BP control. EEG. Treat medical diseases. HISTORY OF THE PRESENT ILLNESS: 72-y-old AA male patent had MS changes and weakness was recently hospitalized in [facility]. He had similar symptoms again this time as MS changes, unresponsiveness , and weakness to be brought to the ER of [facility] on 06/29/18. His BP was found elevated at 227/91 mmHg. PAST MEDICAL HISTORY: Please see above. PAST SURGERY HISTORY: No major surgery recently. ALLERGY: Unknown MEDICATIONS: Refer to [facility] FAMILY HISTORY: Non contributory. SOCIAL HISTORY: Denies current smoking, drinking, and illicit drug use. He smoked in past. He used Cocaine, Marijuana for > 5 years in the past. REVIEW OF SYSTEMS: Constitutional: No cachexia. Head: No traumatic brain or head injury. Skin: No edema, or rash. Ear: No infection. Eyes: No vision loss or color blindness. Nose: No bleeding or purulent discharges. Hearing: Hearing decrease. Neck: No injury. Cardiac: HTN. Pulmonary: No COPD. GI: No GI ulcer, GI bleeding. Urinary/genital: UTI. Endocrinologic: No cousin face, craniofacial dysmorphism, polydactyly. Skeletomuscular: No muscular atrophy, deformity. Neurological: see HP. Psychiatric: Opiate positive this time. Otherwise, not [id number] review of systems. PHYSICAL EXAMINATION: General appearance is in subacute distress. HEENT: Normocephalic and nontraumatic. Eyes, nose, ears, and throat are unremarkable. Neck is supple. No lymphadenopathy. No crepitus. Cardiovascular: S1, S2, regular rate and rhythm. Pulmonary: Clear to auscultation bilaterally. Abdomen: Bowel sounds are positive. Abdomen is soft, nontender, and nondistended. Extremities: No rash, lesions, or edema. No restriction of range of motion NEUROLOGICAL EXAMINATION: Awake. Oriented to time, place and person, but reactions were very slow. PERRL. EOMI. CN: no focal findings. Muscle tone: within normal. Muscle strength: 5- DTR: 2- Plantar reflex: Neutral response bilaterally Gait: At his baseline normal. Sensory exam: no abnormal findings. No cerebellar signs elicited. F-T-N test fine. Objective Objective Vital Signs Date Time Temp Pulse Resp B/P (MAP) Pulse Ox O2 Delivery O2 Flow Rate FiO2 06/30/18 11:00 97.7 63 20 113/69 (84) 96 Room Air 97.7 Intake and Output 06/30/18 07:00 Intake Total 1240 ml Output Total 750 ml Balance 490 ml Intake Oral 1240 ml Output Urine Total 750 ml Vitals Signs Vitals VS - Last 72 Hours, by Label Date Time Temp Pulse Resp B/P (MAP) Pulse Ox O2 Delivery O2 Flow Rate FiO2 06/30/18 11:00 97.7 63 20 113/69 (84) 96 Room Air 97.7 06/30/18 08:15 73 143/76 06/30/18 08:00 Room Air 06/30/18 07:00 97.8 73 20 143/76 (98) 95 Room Air 97.8 06/30/18 03:00 98.0 73 18 168/89 (115) 96 Room Air 98.0 06/29/18 23:00 97.7 58 18 128/82 (97) 97 Room Air 97.7 06/29/18 20:00 Room Air 06/29/18 19:00 97.7 106 18 102/49 (66) 95 Room Air 97.7 06/29/18 17:07 64 135/66 06/29/18 15:07 98.0 64 20 135/66 (89) 100 Room Air 98.0 06/29/18 12:10 76 138/91 06/29/18 10:58 98.0 76 20 138/91 (107) 95 Room Air 98.0 06/29/18 08:00 Room Air 06/29/18 07:00 97.8 67 20 130/91 (104) 95 Room Air 97.8 Laboratory Laboratory Laboratory Tests Test 06/30/18 08:58 Sodium Level 144 mmol/L (136-145) Potassium Level 3.4 mmol/L (3.5-5.1) Chloride Level 108 mmol/L (98-107) Carbon Dioxide Level 26 mmol/L (21-32) Anion Gap 10 (6-14) Blood Urea Nitrogen 22 mg/dL (8-26) Creatinine 1.1 mg/dL (0.7-1.3) Estimated GFR (Cockcroft-Gault) 79.2 Glucose Level 114 mg/dL (70-99) Calcium Level 8.8 mg/dL (8.5-10.1) Magnesium Level 2.0 mg/dL (1.8-2.4) Triglycerides Level 72 mg/dL (0-150) Cholesterol Level 183 mg/dL (0-200) LDL Cholesterol, Calculated 124 mg/dL (0-100) VLDL Cholesterol, Calculated 14 mg/dL (0-40) Non-HDL Cholesterol Calculated 138 mg/dL (0-129) HDL Cholesterol 45 mg/dL (40-60) Cholesterol/HDL Ratio 4.1 Free Thyroxine 1.16 ng/dL (0.76-1.46) Free Triiodothyronine (T3) pg/mL 2.10 pg/mL (2.18-3.98) Microbiology 06/29/18 Urine Culture - Final, Complete 06/29/18 Urine Culture Result 1 (MELITA) - Final, Complete Medication Medications Current Medications Atorvastatin Calcium (Lipitor) 10 mg QHS PO ; Start 06/30/18 at 21:00 Non-Formulary Medication (Melatonin ) 6 mg HS PO ; Start 06/29/18 at 21:00; Status UNV Comment Review of Relevant I have reviewed the following items abimael (where applicable) has been applied. SANDEEP LENZ MD Jun 30, 2018 14:13
[2018-06-30 15:00] VITALS: BP 149/76
--- NOTE | 2018-06-30 19:02 | EEG ---
DATE OF SERVICE: 06/30/2018 EEG NUMBER: [id number] OBJECTIVE: This is a 72-year-old -[place] Citizen male patient with history of recurrent mental status changes. EEG was requested to evaluate cerebral activity and help rule out subclinical seizures. METHODS: Twenty electrodes were applied according to the international 10-20 electrode placement system. EKG monitoring, hyperventilation, intermittent photic stimulation, monopolar and bipolar montages were routinely utilized. The record was obtained on a digital system with video monitoring. FINDINGS: 1. Background: The patient was recorded in the awake and drowsy states. No actual sleep state was recorded. The overall background amplitude is 10-20 microvolts. A posterior dominant rhythm of 6-7 Hz is observed. 2. Abnormalities: No specific epileptiform discharge or electrographic seizure is seen. No focal or diffuse slowing. 3. Activation: Hyperventilation was not performed because the patient was not able to follow the commands. Intermittent photic stimulation was performed with photic driving. IMPRESSION: This EEG falls into the abnormal category of the study for the awake and drowsy states. No sleep state was recorded. The posterior dominant rhythm of 6-7 Hz is slow for age. No focal, lateralizing, specific epileptiform discharge or electrographic seizure is seen. SANDEEP LENZ MD DR: ARCHANA/alondra JOB#: [id number] / [id number]
[2018-06-30 20:56] VITALS: BP 145/83
[2018-06-30] MEDS ORDERED: ATORVASTATIN CALCIUM 10 MG TABLET. PO SCH (21:00)
[2018-07-01 00:39] VITALS: BP 130/70
[2018-07-01 03:28] VITALS: BP 141/78
[2018-07-01 07:35] VITALS: BP 159/87
[2018-07-01] MEDS: CARVEDILOL 12.5 MG TABLET. PO SCH (08:01)
[2018-07-01] MEDS: CETIRIZINE HCL 10 MG TABLET. PO SCH (08:01)
[2018-07-01] MEDS: CHOLECALCIFEROL (VITAMIN D3) 1,000 UNIT TABLET PO SCH (08:01)
[2018-07-01] MEDS: CYANOCOBALAMIN (VITAMIN B-12) 1,000 MCG TABLET. PO SCH (08:01)
[2018-07-01] MEDS: ASPIRIN ENTERIC COATED 81 MG TABLET.DR. PO SCH (08:01)
[2018-07-01] MEDS: FLUTICASONE 50MCG/NASAL SPRAY 16GM BOTTLE. NS SCH ×2 (08:02→08:05)
[2018-07-01] MEDS: FOLIC ACID 1 MG TABLET. PO SCH (08:03)
[2018-07-01] MEDS: DICLOFENAC SODIUM 1% TOPICAL GEL 100GM TUBE. TP SCH (08:03)
[2018-07-01] MEDS ORDERED: ATOR10TA60 PO (08:08)
--- NOTE | 2018-07-01 09:35 | PDOC3 ---
Discharge Summary Visit Information Date of Admission: Jun 29, 2018 Date of Discharge: Jul 01, 2018 Admitting Diagnosis Comment: Hypertensive encephalopathy. Hypertensive emergency, BP 227/90 mmHg. Recurrent metabolic encephalopathy. HTN. Aortic insufficiency. Narcotic use. Smoking. Hx of illicit drug use. Dementia features. Final Diagnosis Problems Medical Problems: (1) Altered mental status Status: Acute Brief Hospital Course Allergies Allergies Coded Allergies Type Severity Reaction Last Updated Verified No Known Drug Allergies 06/29/18 No Vital Signs Vital Signs Date Time Temp Pulse Resp B/P (MAP) Pulse Ox O2 Delivery O2 Flow Rate FiO2 07/01/18 08:01 74 159/87 07/01/18 08:00 Room Air 07/01/18 07:35 97.3 18 98 97.3 Lab Results Laboratory Tests Test 06/29/18 20:32 06/30/18 08:58 Nasal Screen MRSA (PCR) Negative (Negative) Sodium Level 144 mmol/L (136-145) Potassium Level 3.4 mmol/L (3.5-5.1) Chloride Level 108 mmol/L (98-107) Carbon Dioxide Level 26 mmol/L (21-32) Anion Gap 10 (6-14) Blood Urea Nitrogen 22 mg/dL (8-26) Creatinine 1.1 mg/dL (0.7-1.3) Estimated GFR (Cockcroft-Gault) 79.2 Glucose Level 114 mg/dL (70-99) Calcium Level 8.8 mg/dL (8.5-10.1) Magnesium Level 2.0 mg/dL (1.8-2.4) Triglycerides Level 72 mg/dL (0-150) Cholesterol Level 183 mg/dL (0-200) LDL Cholesterol, Calculated 124 mg/dL (0-100) VLDL Cholesterol, Calculated 14 mg/dL (0-40) Non-HDL Cholesterol Calculated 138 mg/dL (0-129) HDL Cholesterol 45 mg/dL (40-60) Cholesterol/HDL Ratio 4.1 Free Thyroxine 1.16 ng/dL (0.76-1.46) Free Triiodothyronine (T3) pg/mL 2.10 pg/mL (2.18-3.98) Brief Hospital Course Mr. Encarnacion is a 72 old -[place] male who was admitted confused because of a blood pressure of 227/90 on admission. Not taking his Coreg 12.5 by mouth twice a day which is his home medication. Comanage with neurology and cardiology. We did not have to start any new blood pressure regimen, to continue aspirin 81, Coreg 12.5 by mouth twice a day and statin. The new medication statin which have Rx for including the Coreg. No PT needs. Echocardiogram is good. Stable to for home today with compliance to BP regimen and follow-up PCP 1 month. Some dementia features obviously Proc: echo COnsults: cards, neuro Discharge Information Condition at Discharge: Improved, Stable Follow Up: Weeks (PCP 1 month for BP follow-up) Disposition/Orders: D/C to Home Scheduled Aspirin (Aspir-Low) 81 Mg Tablet.dr, 1 TAB PO DAILY, #30 Ref 3 (Reported) Entered as Reported by: WESLEY DUENAS on 06/29/18543 Last Action: Continued on 06/29/181045 by ROSY BRANDON MD Atorvastatin Calcium (Atorvastatin Calcium) 10 Mg Tablet, 10 MG PO QHS for 30 Days, #30 Prescribed by: BRANDI GARCIA on 07/01/18 08 Carvedilol (Coreg) 12.5 Mg Tablet, 1 TAB PO BID, #180 Ref 1 (Reported) Entered as Reported by: WESLEY DUENAS on 06/29/18543 Last Action: Continued on 06/29/181045 by ROSY BRANDON MD Cholecalciferol (Vitamin D3) (Vitamin D) 1,000 Unit Capsule, 1 CAP PO DAILY, # 30 Ref 3 (Reported) Entered as Reported by: WESLEY DUENAS on 06/29/18543 Last Action: Converted on 06/29/181045 by ROSY BRANDON MD Cyanocobalamin (Vitamin B-12) (Vitamin B-12) 1,000 Mcg Tablet, 1 TAB PO DAILY, # 30 Ref 2 (Reported) Entered as Reported by: WESLEY DUENAS on 06/29/18543 Last Action: Continued on 06/29/181045 by ROSY BRANDON MD Diclofenac Sodium (Voltaren) 100 Gm Gel..gram., 1 GM TP BID, #100 Ref 2 ( Reported) Entered as Reported by: WESLEY DUENAS on 06/29/18543 Last Action: Continued on 06/29/181045 by ROSY BRANDON MD Fluticasone Propionate (Fluticasone Propionate Nasal [place]) 16 Gm [place].susp, 2 SPRAY NS DAILY, #1 Ref 11 (Reported) Entered as Reported by: WESLEY DUENAS on 06/29/18528 Last Action: Continued on 06/29/181045 by ROSY BRANDON MD Folic Acid (Folic Acid) 1 Mg Tablet, 1 TAB PO DAILY, #90 Ref 1 (Reported) Entered as Reported by: WESLEY DUENAS on 06/29/18543 Last Action: Continued on 06/29/181045 by ROSY BRANDON MD Loratadine (Claritin) 10 Mg Tablet, 1 TAB PO DAILY, #30 Ref 5 (Reported) Entered as Reported by: WESLEY DUNEAS on 06/29/18543 Last Action: Converted on 06/29/181045 by ROSY BRANDON MD Melatonin (Melatonin) 3 Mg Tablet, 6 MG PO HS, (Reported) Entered as Reported by: WESLEY DUENAS on 06/29/18543 Last Action: Converted on 06/29/181045 by ROSY BRANDON MD Scheduled PRN Acetaminophen (Tylenol) 325 Mg Tablet, 1 TAB PO PRN Q6HRS PRN for MILD PAIN, #30 (Reported) Entered as Reported by: WESLEY DUENAS on 06/29/18543 Last Action: Continued on 06/29/181045 by ROSY BRANDON MD Albuterol Sulfate (Proair Hfa Inhaler) 8.5 Gm Hfa.aer.ad, 22 PUFF INH PRN Q4HRS PRN for SHORTNESS OF BREATH, Ref 0 (Reported) Entered as Reported by: WESLEY DUENAS on 06/29/18543 Last Action: Converted on 06/29/181045 by ROSY BRANDON MD Discontinued Medications Ibuprofen (Ibuprofen) 800 Mg Tablet, 800 MG PO PRN Q8HRS PRN for INFLAMMATION, ( Reported) Entered as Reported by: WESLEY DUENAS on 06/29/18543 Last Action: Discontinued on 06/29/181740 by MD JOSE MUORA CHERRIE Y MD Jul 01, 2018 09:35
[2018-07-01 11:00] VITALS: BP 139/83
== END 2018-07-01 11:50 | disposition home or self-care (01) | DRG 78 ==
LOC: ER 02:26 → 5 SOUTH 04:00
PROVIDERS: ADMIT Internal Medicine; ATTEND Internal Medicine
DX: I67.4 Hypertensive encephalopathy (principal); I16.1 Hypertensive emergency; F03.90 Unspecified dementia, unspecified severity, without behavioral disturbance, psychotic disturbance, mood disturbance, and anxiety; I35.1 Nonrheumatic aortic (valve) insufficiency; F17.210 Nicotine dependence, cigarettes, uncomplicated; I50.9 Heart failure, unspecified; I11.0 Hypertensive heart disease with heart failure; I34.0 Nonrheumatic mitral (valve) insufficiency; F11.10 Opioid abuse, uncomplicated; Z91.14 Patient's other noncompliance with medication regimen
CPT/HCPCS: 36415; 70450; 71045; 80048; 80053; 80061; 80307; 81001; 82607; 83735; 83880; 84439; 84443; 84481; 84484; 85025; 85610; 87086; 87641; 93005; 93306; 95816; 96374; G0480; 99285-25; G0479